=== PATIENT | female | born 1975 | race Caucasian/White ===

== ENCOUNTER → 2016-10-12 | Outpatient (CLI) | payer OTHER ==
[~2016-10-12] MED LIST: CELEXA20 MG PO; MINOCIN100 M2 PO; VALTREX1000 MG PO
== END | disposition disaster alternative care site (69) ==
LOC: GBCOE 08:46
DX: Z12.31 Encounter for screening mammogram for malignant neoplasm of breast (principal)
CPT/HCPCS: G0202